=== PATIENT | female | born 1990 | race American Indian/Alaskan Native ===

== ENCOUNTER 2016-09-24 18:43 | Inpatient (IN) | payer MEDICAID ==
[2016-09-24] MEDS ORDERED: ZOFRAN IV PRN ×2 (21:11→23:22)
[2016-09-24] MEDS ORDERED: MINERAL OIL PO PRN (21:11)
[2016-09-24] MEDS ORDERED: XYLOCAINE 2% INFILTRATI ONE (21:11)
[2016-09-24] MEDS ORDERED: NARCAN 0.4 MG/1 ML IV PRN (21:11)
[2016-09-24] MEDS ORDERED: BRETHINE IVP PRN (21:11)
[2016-09-24] MEDS ORDERED: BRETHINE SUB-Q PRN (21:11)
[2016-09-24] MEDS ORDERED: STADOL IV PRN (21:11)
[2016-09-24] MEDS ORDERED: POLYCILLIN/NS 2 GM/100 ML 2 GM/100 ML BAG IV ONE (21:11)
[2016-09-24] MEDS ORDERED: SUBLIMAZE IV PRN (21:11)
[2016-09-24] MEDS ORDERED: ePHEDrine SULFATE IV PRN (21:11)
--- NOTE | 2016-09-24 21:16 | History and Physical Report ---
History of Present Illness Date of examination: 09/24/16 Chief complaint: Labor History of present illness: Pt is a 26yo BF EDC 09/27/16; EGA 39 4/7 weeks presents to L&D complaining of RUC's q 3-4 mins. [facility]. records are not available and GBS is unknown. Past History Past Medical History: no pertinent history Past Surgical History: no surgical history Family/Genetic History: none Social history: no significant social history, single - Obstetrical History Expected Date of Delivery: 09/27/16 Actual Gestation: 39 Week(s) 4 Day(s) : 3 Medications and Allergies Allergies Allergy/AdvReac Type Severity Reaction Status Date / Time No Known Allergies Allergy Verified 09/24/16 19:45 Active Meds: Active Medications Butorphanol Tartrate (Stadol) 2 mg IV Q2H PRN PRN Reason: Pain , Severe (7-10) Ephedrine Sulfate (Ephedrine Sulfate) 10 mg IV Q2M PRN PRN Reason: Hypotension Stop: 09/24/16 21:16 Fentanyl (Sublimaze) 100 mcg IV Q2H PRN PRN Reason: Labor Pain Ampicillin Sodium (Polycillin/Ns 1 Gm/50 Ml) 1 gm in 50 mls @ 100 mls/hr IV Q4HR RIVAS PRN Reason: Protocol Ampicillin Sodium (Polycillin/Ns 2 Gm/100 Ml) 2 gm in 100 mls @ 100 mls/hr IV ONCE ONE PRN Reason: Protocol Stop: 09/24/16 22:10 Lactated Ringer's (Lactated Ringers) 1,000 mls @ 125 mls/hr IV DIRECT RIVAS Oxytocin/Sodium Chloride (Pitocin/Ns 20 Unit/1000ml Drip) 20 units in 1,000 mls @ 125 mls/hr IV DIRECT RIVAS Oxytocin/Sodium Chloride (Pitocin/Ns 30 Unit/500ml) 30 units in 500 mls @ 4 mls /hr IV TITR RIVAS PRN Reason: Protocol Oxytocin/Sodium Chloride (Pitocin/Ns 30 Unit/500ml) 30 units in 500 mls @ 4 mls /hr IV TITR RIVAS; 4 MILLIUNITS/MIN PRN Reason: Protocol Lidocaine (Xylocaine 2%) 20 ml INFILTRATI ONCE ONE Stop: 09/24/16 21:12 Mineral Oil (Mineral Oil) 30 ml PO QHS PRN PRN Reason: Constipation Naloxone HCl (Narcan 0.4 Mg/1 Ml) 0.1 mg IV Q2MIN PRN PRN Reason: Res Rate </= 8 or 02 SAT < 92% Ondansetron HCl (Zofran) 4 mg IV Q8H PRN PRN Reason: Nausea And Vomiting Terbutaline Sulfate (Brethine) 0.25 mg SUB-Q ONCE PRN PRN Reason: Hyperstimulation/Hypertonicity Stop: 09/24/16 21:12 Terbutaline Sulfate (Brethine) 0.25 mg IVP ONCE PRN PRN Reason: Hyperstimulation/Hypertonicity Stop: 09/24/16 21:12 Review of Systems All systems: negative - Vital Signs Vital signs: Vital Signs Pulse Pulse Ox 104 H 98 09/24/16 19:17 09/24/16 19:17 Temp Pulse Resp BP Pulse Ox 98.4 F 89 126/75 99 09/24/16 19:44 09/24/16 21:07 09/24/16 19:18 09/24/16 21:07 - Physical Exam Breasts: Positive: deferred Cardiovascular: Regular rate Lungs: Positive: Clear to auscultation Abdomen: Positive: normal appearance Genitourinary (Female): Positive: normal external genitalia Vagina: Positive: normal moisture Uterus: Positive: enlarged Anus/Rectum: Positive: normal perianal skin Extremities: Positive: normal - Obstetrical FHR: category 2 Uterine Contraction Monitor Mode: External Cervical Dilatation: 3 Cervical Effacement Percentage: 60 station: -2 Uterine Contraction Pattern: Irregular Uterine Tone Measurement Phase: Contraction Uterine Contraction Intensity: Mild Results Result Diagrams: 09/24/16 21:25 All other labs normal. Assessment and Plan - Patient Problems (1) 39 weeks gestation of Onset Date: 09/24/16 Current Visit: Yes Status: Acute Plan to address problem: A: IUP @ 39 4/7 weeks in labor Unknown GBS P: Admit to L&D for expectant vaginal delivery IV Ampicillin Obtain records
[2016-09-24 21:44] LABS: Hemoglobin 9.5 gm/dl (10.1-14.3); Mean Corpuscular HGB Conc 32 % (30-34); Mean Corpuscular Volume 74 fl (79-97); Platelet Count 219 K/mm3 (140-440); Red Blood Count 4.03 M/mm3 (3.65-5.03); White Blood Count 9.6 K/mm3 (4.5-11.0)
[2016-09-24 21:45] LABS: Mean Corpuscular Hemoglobin 24 pg (28-32); Red Cell Distribution Width 20.8 % (13.2-15.2)
[2016-09-24] MEDS ORDERED: PITOCin/NS 30 UNIT/500ML 30 UNITS/500 ML BAG IV SCH ×2 (22:00)
[2016-09-24] MEDS ORDERED: LACTATED RINGERS 1,000 ML IV SCH (22:00)
[2016-09-24] MEDS ORDERED: PITOCin/NS 20 UNIT/1000ML DRIP 20 UNITS/1,000 ML BAG IV SCH ×2 (22:00→23:45)
[2016-09-24] MEDS ORDERED: BICITRA ONE (22:05)
[2016-09-24] MEDS ORDERED: REGLAN ONE (22:06)
[2016-09-24] MEDS ORDERED: PEPCID IV ONE (22:06)
[2016-09-24] MEDS ORDERED: ANCEF/STERILE WATER 2 GM/20 ML 0 GM/0 ML SYRINGE IV ONE (22:06)
[2016-09-24] MEDS ORDERED: BENADRYL PO PRN (23:22)
[2016-09-24] MEDS ORDERED: NORCO 5/325 PO PRN (23:22)
[2016-09-24] MEDS ORDERED: TUCKS PAD TP PRN (23:22)
[2016-09-24] MEDS ORDERED: MILK OF MAGNESIA PO PRN (23:22)
[2016-09-24] MEDS ORDERED: DULCOLAX PR PRN (23:22)
[2016-09-24] MEDS ORDERED: PHENERGAN PO PRN (23:22)
[2016-09-24] MEDS ORDERED: DERMOPLAST TP PRN (23:22)
[2016-09-24] MEDS ORDERED: LANSINOH TP PRN (23:22)
[2016-09-24] MEDS ORDERED: TYLENOL PO PRN (23:22)
[2016-09-24] MEDS ORDERED: PHENERGAN PR PRN (23:22)
--- NOTE | 2016-09-24 23:29 | Procedure Note ---
OB Delivery Note - Delivery Date of Delivery: 09/24/16 Surgeon: OCLLIN JOAQUIN Estimated blood loss: <100cc - Vaginal Delivery presentation: vertex Delivery position: OA Intrapartum events: precipitous labor- <3hr Delivery induction: none Delivery augmentation: rupture of membranes Delivery monitor: external FHT, external uterine Route of delivery: Delivery placenta: spontaneous Delivery cord: nuchal cord, 3 umbilical vessels Episiotomy: none Delivery laceration: none Anesthesia: none - A at 1 minute: 8 at 5 minutes: 9 Gender: Male (3146gms)
[2016-09-24] MEDS ORDERED: SODIUM CHLORIDE FLUSH SYRINGE 10 ML IV NR (23:45)
[2016-09-25] MEDS ORDERED: SENOKOT S PO SCH
[2016-09-25] MEDS: MOTRIN PO SCH ×2 (01:00→06:21)
[2016-09-25] MEDS ORDERED: POLYCILLIN/NS 1 GM/50 ML 1 GM/50 ML BAG IV SCH (01:13)
[2016-09-25] MEDS ORDERED: M-M-R II VACCINE SUB-Q ONE (06:00)
[2016-09-25] MEDS ORDERED: BOOSTRIX IM ONE (06:00)
--- NOTE | 2016-09-25 09:53 | Progress Note ---
Assessment and Plan A: PPD #1 stable P: D/C home tomorrow, GBS + Subjective - Subjective Date of service: 09/25/16 Principal diagnosis: active labor, Patient reports: appetite normal [place]: doing well Objective - Vital Signs Latest vital signs: Vital Signs Temp Pulse Pulse Resp BP BP Pulse Ox 09/25/16 05:50 98.4 F 73 20 103/50 09/25/16 01:55 98.6 F 78 18 120/58 09/25/16 01:24 88 111/59 09/25/16 01:09 71 124/60 09/25/16 01:00 18 09/25/16 00:54 76 125/60 09/25/16 00:39 76 123/61 09/25/16 00:30 96.3 F L 18 09/25/16 00:24 88 120/59 09/25/16 00:09 85 125/58 09/24/16 23:54 96 H 157/67 09/24/16 23:39 114 H 170/65 09/24/16 23:32 94 H 124/63 09/24/16 23:20 96.5 F L 18 09/24/16 23:11 107 H 100 09/24/16 23:06 99 H 100 09/24/16 23:01 101 H 100 09/24/16 22:56 84 97 09/24/16 22:51 89 100 09/24/16 22:46 91 H 100 09/24/16 22:41 92 H 100 09/24/16 22:36 93 H 98 09/24/16 22:32 91 H 122/67 09/24/16 22:30 82 100 09/24/16 22:25 95 H 100 09/24/16 22:20 102 H 100 09/24/16 22:15 95 H 100 09/24/16 22:10 93 H 100 09/24/16 22:05 94 H 100 09/24/16 22:00 83 100 09/24/16 21:55 84 100 09/24/16 21:50 75 100 09/24/16 21:45 85 100 09/24/16 21:40 78 100 09/24/16 21:35 82 100 09/24/16 21:32 90 120/73 09/24/16 21:07 89 99 09/24/16 21:00 91 H 99 09/24/16 20:54 92 H 98 09/24/16 20:49 101 H 97 09/24/16 20:21 83 99 09/24/16 20:16 88 99 09/24/16 20:11 91 H 98 09/24/16 20:06 81 99 09/24/16 20:01 78 99 09/24/16 19:56 92 H 99 09/24/16 19:51 77 99 09/24/16 19:45 85 99 09/24/16 19:44 98.4 F 09/24/16 19:40 84 98 09/24/16 19:35 88 97 09/24/16 19:30 86 98 09/24/16 19:25 97 H 99 09/24/16 19:24 93 H 99 09/24/16 19:22 86 99 09/24/16 19:18 107 H 126/75 09/24/16 19:17 104 H 98 Intake and Output 09/24/16 09/25/16 09/25/16 22:59 06:59 14:59 Intake Total 735 Output Total 400 Balance 335 Intake: IV 375 PITOCin/NS 20 UNIT/1000ML 375 DRIP 20 units In 1,000 ml @ 125 mls/hr IV DIRECT RIVAS Rx#:[id number] Intake, Free Water 360 Output: Urine 400 Void 400 Other: Total, Output Amount 400 Weight 211 lb Estimated Blood Loss 100 - Exam Breasts: Present: deferred Cardiovascular: Present: Regular rate Lungs: Present: Clear to auscultation Abdomen: Present: soft Vulva: both: normal Uterus: Present: fundal height below umbilicus Extremities: Present: normal Deep Tendon Reflex Grade: Normal +2 - Labs Labs: Abnormal lab results 09/24/16 Range/Units 21:25 Hgb 9.5 L (10.1-14.3) gm/dl Hct 30.0 L (30.3-42.9) % MCV 74 L (79-97) fl MCH 24 L (28-32) pg RDW 20.8 H (13.2-15.2) %
--- NOTE | 2016-09-25 09:56 | Discharge Summary ---
Providers - Providers Date of Admission: 09/24/16 21:30 Date of discharge: 09/26/16 Attending physician: COLLIN MERLOS MD Primary care physician: COLLIN MERLOS MD Hospitalization Reason for admission: active labor Delivery: Episiotomy: none Other procedures: none Discharge diagnosis: IUP at term delivered baby: male Condition at discharge: Good Disposition: DISCHARGED TO HOME OR SELFCARE Plan - Provider Discharge Summary Activity: routine, no sex for 6 weeks, no strenuous exercise Diet: routine Additional instructions: [] Smoking cessation referral if applicable(refer to patient education folder for contact #) [] Refer to [employer] Booklet Call your doctor immediately for: * Fever > 100.5 * Heavy vaginal bleeding ( >1 pad per hour) * Severe persistent headache * Shortness of breath * Reddened, hot, painful area to leg or breast * Drainage or odor from incision. * Keep incision clean and dry at all times and follow doctor's instructions regarding bathing/showering - Follow up plan Follow up: [facility] [Provider Group] - 6 Weeks
[2016-09-25] MEDS ORDERED: PRENATAL VITAMIN PO SCH (10:00)
[2016-09-25 12:18] LABS: Hematocrit 29.4 % (30.3-42.9); Hemoglobin 9.3 gm/dl (10.1-14.3)
[2016-09-25] MEDS: COLACE PO SCH (22:25)
[2016-09-25] MEDS: FEOSOL PO SCH (22:25)
[2016-09-26] MEDS: MOTRIN PO SCH ×5 (06:04→21:54)
[2016-09-26] MEDS: COLACE PO SCH ×2 (11:53→21:54)
[2016-09-26] MEDS: FEOSOL PO SCH ×2 (11:54→21:54)
[2016-09-26 17:26] VITALS: BP 112/65
== END 2016-09-26 23:28 | disposition home or self-care (01) | DRG 775 ==
LOC: TRG 18:43 → LD 21:30 → TRG 21:30 → OB 09-25 03:18
PROVIDERS: ADMIT Obstetrics & Gynecology; ATTEND Obstetrics & Gynecology
PROC: 10907ZC Drainage of Amniotic Fluid, Therapeutic from Products of Conception, Via Natural or Artificial Opening (ICD-10-PCS; principal; 2016-09-24)
PROC: 10E0XZZ Delivery of Products of Conception, External Approach (ICD-10-PCS; principal; 2016-09-24)
DX: O62.3 Precipitate labor (principal); O99.824 Streptococcus B carrier state complicating childbirth; O69.81X0 Labor and delivery complicated by cord around neck, without compression, not applicable or unspecified; Z3A.39 39 weeks gestation of pregnancy; Z37.0 Single live birth
CPT/HCPCS: 36415; 85014; 85018; 85027; 86850; 86900; 86901; 99211; G0463; J0290; J0690; J2590; J2765; J7120